=== PATIENT | male | born 1945 | race Caucasian/White ===

== ENCOUNTER 2021-10-25 06:32 | Emergency (ER) | payer MEDICARE, OTHER ==
[~2021-10-25] VITALS: Ht 172.7 cm; Wt 81.0 kg
[~2021-10-25 06:32] MED LIST: ACTEMRA200 MG/10 IV
--- OUTSIDE RECORDS SUMMARY | 2021-10-25 06:41 | XMS ---
PreManage Notification: LEXIE GRANT Security [employer] Events No recent Security Events currently on file CRITERIA MET - [facility] - 2 Visits in 30 Days CARE PROVIDERS There are no care providers on record at this time. Mel has no Care Guidelines for this patient. Bianca VISIT COUNT (12 MO.) 1 [facility] NOTE: Visits indicate total known visits. ED/UCC VISIT TRACKING (12 MO.) 10/25/2021 06:34 [facility] [place] TYPE: Emergency COMPLAINT: - ARTHRITIS INFUSION 10/24/2021 09:51 [facility] [place] TYPE: Emergency COMPLAINT: - ARTHRITIS INFUSION 07/22/2021 05:55 [facility] [place] TYPE: Emergency COMPLAINT: - FLANK PAIN DIAGNOSES: 0. Urinary tract infection, site not specified 0. Hydronephrosis with renal and ureteral calculous obstruction INPATIENT VISIT TRACKING (12 MO.) 07/22/2021 10:26 [facility] TYPE: Surgery DIAGNOSES: - Unspecified hydronephrosis - Urinary tract infection, site not specified - Acute kidney failure, unspecified - Calculus of ureter - Rheumatoid arthritis with rheumatoid factor of multiple sites without organ or systems involvement - Unspecified Escherichia coli [E. coli] as the cause of diseases classified elsewhere - Unspecified renal colic - Essential (primary) hypertension - flank pain - Unspecified renal colic - Personal history of other diseases of the circulatory system - Calculus of ureter - Gastro-esophageal reflux disease without esophagitis [email or web address]
[2021-10-25] MEDS ORDERED: DIGOXIN250 MCG PO (06:50)
[2021-10-25] MEDS ORDERED: AZATHIOPRINE50 MG PO (06:51)
[2021-10-25] MEDS ORDERED: DILTIAZEM 24HR180 M1 PO (06:51)
[2021-10-25] MEDS ORDERED: AVODART0.5 MG PO (06:52)
[2021-10-25] MEDS ORDERED: TAMSULOSIN HCL0.4 MG PO (06:52)
[2021-10-25] MEDS ORDERED: PANTOPRAZOLE SO40 MG PO (06:53)
[2021-10-25] MEDS ORDERED: LISINOPRIL-HCT1 EACH PO (06:53)
[2021-10-25] MEDS ORDERED: K-TAB ER20 MEQ PO (08:18)
== END 2021-10-25 08:59 | disposition home or self-care (01) ==
LOC: ED 06:32
DX: M06.9 Rheumatoid arthritis, unspecified (principal); E87.6 Hypokalemia; D69.6 Thrombocytopenia, unspecified; D72.819 Decreased white blood cell count, unspecified; Z23 Encounter for immunization; I10 Essential (primary) hypertension; Z88.8 Allergy status to other drugs, medicaments and biological substances; Z79.899 Other long term (current) drug therapy
CPT/HCPCS: 36415; 80053; 85025; 85060; 99284-25; A9270; J3262; M0249